=== PATIENT | male | born 2000 | race African-American/Black ===

== ENCOUNTER 2019-07-04 | Emergency (ER) | payer SELFPAY ==
[~2019-07-04] MED LIST: BENADRY2 EX; NO; TYLENOL & COD12.5 ML OR
== END 2019-07-04 14:30 | disposition home or self-care (01) | DRG 563 ==
DX: S39.012A Strain of muscle, fascia and tendon of lower back, initial encounter (principal); F17.290 Nicotine dependence, other tobacco product, uncomplicated; X50.0XXA Overexertion from strenuous movement or load, initial encounter; Y93.89 Activity, other specified; Y92.89 Other specified places as the place of occurrence of the external cause; Y99.0 Civilian activity done for income or pay